=== PATIENT | female | born 1955 | race Caucasian/White ===

== ENCOUNTER 2021-03-05 04:58 | Day surgery (SDC) | payer OTHER, MEDICARE ==
[2021-03-04 10:32] VITALS: BMI 35.5
[2021-03-05] MEDS ORDERED: BUPIVACAINE HCL 50 ML ONE (13:16)
[2021-03-05] MEDS ORDERED: LIDOCAINE HCL 1%, 10 MG/ML (20ML VIAL) ONE (13:16)
[2021-03-05] MEDS ORDERED: BUPIVACAINE HCL/PF 0.25% (2.5MG/ML) 10 ML VIAL ONE (13:16)
[2021-03-05] MEDS ORDERED: LIDOCAINE HCL 2% (20ML MULTI-DOSE VIAL) ONE (13:17)
[2021-03-05] MEDS ORDERED: MIDAZOLAM HCL 2 MG/2 ML SINGLE DOSE VIAL ONE (14:07)
[2021-03-05] MEDS ORDERED: LIDOCAINE HCL 2% (50ML VIAL) INF ONE (14:10)
[2021-03-05] MEDS ORDERED: BUPIVACAINE HCL/PF 0.5% (5MG/ML) 10 ML VIAL IJ ONE (14:12)
[2021-03-05] MEDS ORDERED: PROPOFOL 20 ML ONE ×2 (14:13)
[2021-03-05] MEDS ORDERED: LIDOCAINE HCL/PF 2% SDV 5ML VIAL ONE (14:15)
[2021-03-05] MEDS ORDERED: ACETAMINOPHEN INJECTION 100 ML IVPB ONE (14:47)
[2021-03-05 16:32] VITALS: BP 132/64; PULSE 70; TEMP 98
== END 2021-03-05 16:00 | disposition home or self-care (01) ==
LOC: JASU-SURG 04:58
PROC: 0QBR0ZZ Excision of Left Toe Phalanx, Open Approach (ICD-10-PCS; principal; 2021-03-05 13:00)
DX: M20.42 Other hammer toe(s) (acquired), left foot (principal)
CPT/HCPCS: 73630-TC-RT-FY; 88304-TC; 88311-TC; 94760; J0131